=== PATIENT | male | born 1965 | race Caucasian/White ===

== ENCOUNTER 2017-02-20 09:00 | Outpatient (CLI) | payer SELFPAY ==
[~2017-02-20] VITALS: Ht 170.2 cm; Wt 90.7 kg
[~2017-02-20 09:00] MED LIST: ACHYD1T PO; ASPI325T32 PO; CYCL10TA9 PO; HYDR1TAB8 OP; IBP800T PO; LISI40TA PO; OXYC-12 PO; OXYC-471 PO; Oxycodone Hcl PO; SENN-20 PO; TRAM50TA2 PO
[2017-02-20] MEDS ORDERED: GABA600T2 PO (09:39)
[2017-02-20] MEDS ORDERED: SIMV80TA3 PO (09:39)
[2017-02-20] MEDS ORDERED: FINA1TAB16 PO (09:39)
== END 2017-02-20 10:31 ==
LOC: PREOP 09:00
PROVIDERS: ATTEND Surgery
DX: Z01.818 Encounter for other preprocedural examination (principal); Z12.11 Encounter for screening for malignant neoplasm of colon

== ENCOUNTER → 2017-02-21 | Day surgery (SDC) | payer MEDICAID ==
[~2017-02-21] VITALS: Ht 170.2 cm; Wt 90.7 kg
[~2017-02-21] MED LIST changes: +FINA1TAB16 PO; +GABA600T2 PO; +MIDAZOLAM 2 MG/2 ML (VERSED) VIAL ONE; +NS IV 1000 ML 1,000 ML IV ONE; +NS IV 1000 ML 1,000 ML ONE; +SIMV80TA3 PO; +proPOfol 200 MG/20 ML (DIPRIVAN) VIAL IV ONE
[2017-02-21 09:00] VITALS: BP 119/93
--- NOTE | 2017-02-21 09:16 | Progress Note-Pre Operative ---
Pre-Operative Progress Note H&P Reviewed The H&P was reviewed, patient examined and no changes noted. Date H&P Reviewed: Feb 21, 2017 Time H&P Reviewed: 09:16 Pre-Operative Diagnosis: SCREENING COLONOSCOPY AUGUSTINE SANCHES DO Feb 21, 2017 9:16 am
--- NOTE | 2017-02-21 11:26 | Progress Note-Post Operative ---
Post-Operative Progess Note Surgeon (s)/High School Band Teacher (s) Surgeon AUGUSTINE SANCHES DO High School Band Teacher: 0 Pre-Operative Diagnosis SCREENING COLONOSCOPY Post-Operative Diagnosis colon polyps Post-Op Procedure Note Date of Procedure: Feb 21, 2017 Name of Procedure Performed: colonoscopy with hot biopsy colonoscopy x4 Description of the Procedure: see note Findings of the Procedure see note Anesthesia Type per head filter press tender Estimated blood loss (mL): none Specimen(s) collected/removed polyps AUGUSTINE SANCHES DO Feb 21, 2017 11:26
[2017-02-21 11:35] VITALS: BP 107/66
[2017-02-21 12:05] VITALS: BP 115/79
[2017-02-21 12:10] VITALS: BP 115/79
--- NOTE | 2017-02-21 13:06 | PROCEDURE REPORT ---
PROCEDURE PHYSICIAN: AUGUSTINE SANCHES DATE OF PROCEDURE: 02/21/2017 PREOPERATIVE DIAGNOSIS: Screening colonoscopy. POSTOPERATIVE DIAGNOSIS: Colon polyps PROCEDURE: Colonoscopy with hot biopsy polypectomy x4. SURGEON: Marisel. ANESTHESIA: Per SLITTER SCORER. ESTIMATED BLOOD LOSS: None. COMPLICATIONS: None. INDICATIONS: The patient is a 52-year-old male due for screening colonoscopy. He understood risks and benefits of the procedure and wished to proceed with the procedure. Consent was signed on the chart. PROCEDURE: The patient was taken to the endoscopy suite, placed in left lateral recumbent position. Timeout was performed. Digital rectal exam was performed. There were no palpable polyps, masses or ulcerations. The scope was inserted in the rectum and advanced all of the way to the cecum with minimal difficulty. Prep was adequate. It was then seen a small polyp was present which hot biopsy polypectomy was performed. The scope was slowly retracted back into the ascending colon where another small polyp was present which hot biopsy polypectomy was performed. The scope was continued to be slowly retracted back until in the transverse colon. There were no polyps, masses or ulcerations present. Within the descending colon another small polyp was present which hot biopsy polypectomy was performed. The scope was continued be slowly retracted back to the sigmoid colon noting no polyps, masses, ulcerations. The scope was also in the rectum were a small polyp was present which hot biopsy polypectomy was performed. Multiple retractions and insertions were performed demonstrating no other pathology. The scope was then slowly withdrawn until completely removed. The patient tolerated the procedure well without any complications. He was taken to the recovery room in stable condition. RECOMMENDATIONS: The patient will follow-up in the office in 2 weeks to discuss pathology results. The patient will need a repeat colonoscopy in 5 years due to multiple polyps. If he has any problems prior to that, he should be reevaluated at that time. Job ID: [id number] Dictated Date: 02/21/2017 11:29:26 Build Engineer Date: 02/21/2017 12:59:01 / [email or web address]
== END | disposition home or self-care (01) ==
LOC: ENDO 08:54
PROVIDERS: ATTEND Surgery
DX: Z12.11 Encounter for screening for malignant neoplasm of colon (principal); K63.5 Polyp of colon; K62.1 Rectal polyp
CPT/HCPCS: 88305